=== PATIENT | female | born 1945 | race Caucasian/White ===

== ENCOUNTER 2016-10-13 10:52 | Emergency (ER) | payer MEDICARE ==
[~2016-10-13] VITALS: Ht 170.2 cm; Wt 110.0 kg
[2016-10-13 10:54] VITALS: BP 176/79; PULSE 73; RESP 17; TEMP 98; O2SAT 95
--- NOTE | 2016-10-13 11:02 | PD ---
HPI Chief Complaint: Edema Time Seen by Provider: 11:02 Travel History International Travel<30 days: No Contact w/Intl Traveler<30days: No Traveled to known affect area: No History of Present Illness HPI 71-year-old female with history of hypertension, osteoarthritis presents to the ED for evaluation of 2 week history of swelling, redness, pain of the right leg. Patient states that she has had mild swelling since April when she drove from [place] to [place]. But over the last 3 days this has worsened. She endorses "[id number]" arthritis in the right knee. She denies trauma to the area. She denies previous history of blood clots, is not on blood thinners. She denies chest pain, palpitations, shortness of breath, fever, chills. PFSH Past Medical History ?: Not Social History Tobacco Use: Yes (1ppd) Allergies-Medications (Allergen,Severity, Reaction): Coded Allergies: Demerol (Verified Allergy, Severe, Anaphylaxis, 10/13/16) Talwin (Verified Allergy, Severe, Anaphylaxis, 10/13/16) Reported Meds & Prescriptions Reported Meds & Active Scripts Active Lortab (Hydrocodone-Acetaminophen) 5-325 Mg Tab 1 Tab PO Q6H PRN Reported Lisinopril-Hctz 10-12.5 Mg Tab 1 Tab PO DAILY Methotrexate 2.5 Mg Tab 2.5 Mg PO Q7D Prednisone 5 Mg Tab 5 Mg PO DAILY Metoprolol Tartrate 50 Mg Tab 50 Mg PO DAILY Review of Systems Except as stated in HPI: all other systems reviewed are Neg Physical Exam Narrative GENERAL: Well-nourished, well-developed obese white female in no acute distress. SKIN: Warm and dry. HEAD: Normocephalic. EYES: No scleral icterus. No injection or drainage. NECK: Supple, trachea midline. No JVD or lymphadenopathy. CARDIOVASCULAR: Regular rate and rhythm without murmurs, gallops, or rubs. RESPIRATORY: Breath sounds equal bilaterally. No accessory muscle use. GASTROINTESTINAL: Abdomen soft, non-tender, nondistended. MUSCULOSKELETAL: Right lower extremity erythematous with severe, painful, pitting edema to the mid thigh. Patient is able to flex and extend the knee. Crepitus is appreciated. BACK: Nontender without obvious deformity. No CVA tenderness. Data Data Last Documented VS Vital Signs Date Time Temp Pulse Resp B/P Pulse Ox O2 Delivery O2 Flow Rate FiO2 10/13/16 13:49 87 20 160/74 96 10/13/16 10:54 98.0 Orders Complete Blood Count With Diff (10/13/16 11:07) Comprehensive Metabolic Panel (10/13/16 11:07) Act Partial Throm Time (Ptt) (10/13/16 11:07) Prothrombin Time / Inr (Pt) (10/13/16 11:07) Urinalysis - C+S If Indicated (10/13/16 11:07) Iv Access Insert/Monitor (10/13/16 11:07) Us Leg Venous Doppler (10/13/16 11:07) ^ Jcarlos Bandage (10/13/16 13:23) Labs Laboratory Tests Test 10/13/16 10/13/16 11:35 11:45 White Blood Count 9.0 TH/MM3 Red Blood Count 4.58 MIL/MM3 Hemoglobin 13.9 GM/DL Hematocrit 41.3 % Mean Corpuscular Volume 90.2 FL Mean Corpuscular Hemoglobin 30.4 PG Mean Corpuscular Hemoglobin 33.7 % Concent Red Cell Distribution Width 16.2 % Platelet Count 295 TH/MM3 Mean Platelet Volume 8.4 FL Neutrophils (%) (Auto) 81.7 % Lymphocytes (%) (Auto) 6.7 % Monocytes (%) (Auto) 8.1 % Eosinophils (%) (Auto) 2.9 % Basophils (%) (Auto) 0.6 % Neutrophils # (Auto) 7.3 TH/MM3 Lymphocytes # (Auto) 0.6 TH/MM3 Monocytes # (Auto) 0.7 TH/MM3 Eosinophils # (Auto) 0.3 TH/MM3 Basophils # (Auto) 0.1 TH/MM3 CBC Comment DIFF FINAL Differential Comment Prothrombin Time 10.1 SEC Prothromb Time International 0.9 RATIO Ratio Activated Partial 25.6 SEC Thromboplast Time Sodium Level 140 MEQ/L Potassium Level 4.1 MEQ/L Chloride Level 104 MEQ/L Carbon Dioxide Level 28.2 MEQ/L Anion Gap 8 MEQ/L Blood Urea Nitrogen 28 MG/DL Creatinine 1.32 MG/DL Estimat Glomerular Filtration 40 ML/MIN Rate Random Glucose 95 MG/DL Calcium Level 8.7 MG/DL Total Bilirubin 0.4 MG/DL Aspartate Amino Transf 12 U/L (AST/SGOT) Alanine Aminotransferase 20 U/L (ALT/SGPT) Alkaline Phosphatase 83 U/L Total Protein 7.5 GM/DL Albumin 2.7 GM/DL Urine Color YELLOW Urine Turbidity CLEAR Urine pH 5.5 Urine Specific [place] 1.018 Urine Protein NEG mg/dL Urine Glucose (UA) NEG mg/dL Urine Ketones NEG mg/dL Urine Occult Blood NEG Urine Nitrite NEG Urine Bilirubin NEG Urine Urobilinogen LESS THAN 2.0 MG/DL Urine Leukocyte Esterase NEG Urine RBC 3 /hpf Urine WBC 1 /hpf Urine Squamous Epithelial 3 /hpf Cells Urine Bacteria RARE /hpf Urine Hyaline Casts 1 /lpf Urine Mucus FEW /lpf Microscopic Urinalysis Comment CULT NOT INDICATED MDM Medical Decision Making Medical Screen Exam Complete: Yes Emergency Medical Condition: Yes Differential Diagnosis Chirinos cyst versus osteoarthritis versus DVT versus less likely septic arthritis versus other Narrative Course 71-year-old female with history of hypertension, osteoarthritis presents to the ED for evaluation of 2 week history of swelling, redness, pain of the right leg. Patient states that she has had mild swelling since April when she drove from [place] to [place], worsened over the last day. Denies trauma, history of blood clots, chest pain, palpitations, SOB, fevers, chills. Does not take blood thinners. States right knee is "[id number]." Vitals reviewed. Physical exam reveals a nontoxic appearing obese white female in no acute distress. The right lower extremity is severely edematous to the mid thigh. The entire leg is tender to palpation and mildly erythematous. No palpable popliteal mass. Patient is able to flex and extend the knee, crepitus is appreciated. IV was established. Lab work drawn. Wells score is 4. Ultrasound ordered. No concerning abnormalities of the lab work are noted. Ultrasound negative for DVT. This is edema secondary to OA. I discussed the patient, workup and plan of care with Dr. Carrera. She evaluated the patient and agrees that the patient is safe for discharge and close orthopedic follow-up. Patient was prescribed brief course of narcotic pain medications. The leg was wrapped from the ankle to the mid thigh. Instructed to keep the leg elevated, continue with compression, take pain medications as prescribed, continue home medications as previously prescribed, follow up with Dr. Reynaga. She indicated understanding of the instructions. She is amenable to the plan of care. The patient is stable and discharged home. Diagnosis Primary Impression: Osteoarthritis of right knee Qualified Code: M17.11 - Primary osteoarthritis of right knee Additional Impression: Edema Qualified Code: R60.0 - Localized edema Referrals: Jose Daniel Reynaga MD Patient Instructions: General Instructions, Leg Edema (ED), Osteoarthritis (ED) Additional Instructions: Keep the leg elevated and wrapped to reduce swelling and pain. Take pain medication as prescribed. Follow up with Dr. Reynaga this week as discussed. Return to the ED for any urgent or emergent medical condition. Med/Other Pt SpecificInfo: Prescription(s) given Scripts Hydrocodone-Acetaminophen (Lortab)5-325 Mg Tab1 Tab PO Q6H PRN (PAIN) #15 TAB Ref 0 Prov:Prei Womack MD 10/13/16 Disposition: 01 DISCHARGE HOME Condition: Stable Shelly Arellano Oct 13, 2016 11:02
[2016-10-13 11:53] LABS: AUTOMATED NEUTROPHIL # 7.3 TH/MM3 (1.8-7.7); BASOPHIL # 0.1 TH/MM3 (0-0.2); BASOPHIL % 0.6 % (0.0-2.0); EOSINOPHIL # 0.3 TH/MM3 (0-0.4); EOSINOPHIL % 2.9 % (0.0-4.0); HEMATOCRIT 41.3 % (35.0-46.0); HEMO FLAGS DIFF FINAL; LYMPH % 6.7 % (9.0-44.0); LYMPHOCYTE # 0.6 TH/MM3 (1.0-4.8); MEAN CELL VOLUME 90.2 FL (80.0-100.0); MEAN CORPUSCULAR HEMOGLOBIN 30.4 PG (27.0-34.0); MEAN CORPUSCULAR HGB CONC 33.7 % (32.0-36.0); MONO % 8.1 % (0.0-8.0); NEUT % 81.7 % (16.0-70.0); PLATELET COUNT 295 TH/MM3 (150-450); RED BLOOD COUNT 4.58 MIL/MM3 (4.00-5.30); RED CELL DISTRIBUTION WIDTH 16.2 % (11.6-17.2)
[2016-10-13] MEDS ORDERED: METH2.5T PO (11:58)
[2016-10-13] MEDS ORDERED: PRED5TAB PO (11:58)
[2016-10-13] MEDS ORDERED: METO50TA PO (11:58)
[2016-10-13] MEDS ORDERED: LISI10TA PO (11:58)
[2016-10-13 12:03] LABS: APTT (PATIENT) 25.6 SEC (24.3-30.1); INTERNATIONAL NORMALIZED RATIO 0.9 RATIO; PROTHROMBIN TIME - PATIENT 10.1 SEC (9.8-11.6)
[2016-10-13 12:05] LABS: BACTERIA, URINE RARE /hpf; BLOOD, URINE NEG (NEG); GLUCOSE,URINE NEG (NEG); HYALINE CAST, URINE 1 /lpf (RARE); KETONE, URINE NEG (NEG); MUCUS URINE FEW /lpf (OCC); NITRITE,URINE NEG (NEG); PH, URINE 5.5 (5.0-8.5); SQUAMOUS EPITHELIAL CELL URINE 3 /hpf (0-5); URINE COLOR YELLOW (YELLW/STRAW)
[2016-10-13 12:07] LABS: COMMENT (UR) CULT NOT INDICATED; CULTURE IF INDICATED CULT NOT INDICATED
[2016-10-13 12:13] LABS: ANION GAP 8 MEQ/L (5-15); AST (GOT) 12 U/L (15-37); BICARBONATE 28.2 MEQ/L (21.0-32.0); BLOOD UREA NITROGEN 28 MG/DL (7-18); CHLORIDE 104 MEQ/L (98-107); GLOMERULAR FILTRATION RATE 40 ML/MIN (>89); POTASSIUM 4.1 MEQ/L (3.5-5.1); SODIUM (NA) 140 MEQ/L (136-145)
[2016-10-13 12:16] LABS: ALKALINE PHOSPHATASE 83 U/L (45-117); ALT (GPT) 20 U/L (10-53); TOTAL BILIRUBIN ADULT 0.4 MG/DL (0.2-1.0)
--- NOTE | 2016-10-13 12:42 | RADRPT ---
EXAM DATE/TIME: 10/13/2016 12:13 [facility] COMPARISON: No previous studies available for comparison. INDICATIONS : Right leg swelling. MEDICAL HISTORY : Osteoarthritis. Hypertension. SURGICAL HISTORY : Total knee replacement, left. Right knee arthroscopy. Right hand plate. ENCOUNTER: Initial ACUITY: 4 - 6 days PAIN SCORE: 8/10 LOCATION: Right leg. TECHNIQUE: Venous ultrasound of the leg was performed from the inguinal ligament to the proximal calf. Real-time, color Doppler and spectral tracing, compression and augmentation techniques were us ed. FINDINGS: There is normal compressibility of the deep venous system from the inguinal region to the proximal ca lf. No echogenic clot is seen in the lumen of the common femoral, femoral, popliteal, and posterior tibial veins. There is a normal response of the venous system to proximal and distal augmentation an d respiration. Iliac vein open and patent. CONCLUSION: Negative examination with no evidence of DVT Harry Murphy MD on October 13, 2016 at 12:40 Board Certified Radiologist. This report was verified electronically.
--- NOTE | 2016-10-13 13:18 | PD ---
Data Data Last Documented VS Vital Signs Date Time Temp Pulse Resp B/P Pulse Ox O2 Delivery O2 Flow Rate FiO2 10/13/16 10:54 98.0 73 17 176/79 95 Orders Complete Blood Count With Diff (10/13/16 11:07) Comprehensive Metabolic Panel (10/13/16 11:07) Act Partial Throm Time (Ptt) (10/13/16 11:07) Prothrombin Time / Inr (Pt) (10/13/16 11:07) Urinalysis - C+S If Indicated (10/13/16 11:07) Iv Access Insert/Monitor (10/13/16 11:07) Us Leg Venous Doppler (10/13/16 11:07) Knee, Complete (4vws) (10/13/16 12:58) Labs Laboratory Tests Test 10/13/16 10/13/16 11:35 11:45 White Blood Count 9.0 TH/MM3 Red Blood Count 4.58 MIL/MM3 Hemoglobin 13.9 GM/DL Hematocrit 41.3 % Mean Corpuscular Volume 90.2 FL Mean Corpuscular Hemoglobin 30.4 PG Mean Corpuscular Hemoglobin 33.7 % Concent Red Cell Distribution Width 16.2 % Platelet Count 295 TH/MM3 Mean Platelet Volume 8.4 FL Neutrophils (%) (Auto) 81.7 % Lymphocytes (%) (Auto) 6.7 % Monocytes (%) (Auto) 8.1 % Eosinophils (%) (Auto) 2.9 % Basophils (%) (Auto) 0.6 % Neutrophils # (Auto) 7.3 TH/MM3 Lymphocytes # (Auto) 0.6 TH/MM3 Monocytes # (Auto) 0.7 TH/MM3 Eosinophils # (Auto) 0.3 TH/MM3 Basophils # (Auto) 0.1 TH/MM3 CBC Comment DIFF FINAL Differential Comment Prothrombin Time 10.1 SEC Prothromb Time International 0.9 RATIO Ratio Activated Partial 25.6 SEC Thromboplast Time Sodium Level 140 MEQ/L Potassium Level 4.1 MEQ/L Chloride Level 104 MEQ/L Carbon Dioxide Level 28.2 MEQ/L Anion Gap 8 MEQ/L Blood Urea Nitrogen 28 MG/DL Creatinine 1.32 MG/DL Estimat Glomerular Filtration 40 ML/MIN Rate Random Glucose 95 MG/DL Calcium Level 8.7 MG/DL Total Bilirubin 0.4 MG/DL Aspartate Amino Transf 12 U/L (AST/SGOT) Alanine Aminotransferase 20 U/L (ALT/SGPT) Alkaline Phosphatase 83 U/L Total Protein 7.5 GM/DL Albumin 2.7 GM/DL Urine Color YELLOW Urine Turbidity CLEAR Urine pH 5.5 Urine Specific [place] 1.018 Urine Protein NEG mg/dL Urine Glucose (UA) NEG mg/dL Urine Ketones NEG mg/dL Urine Occult Blood NEG Urine Nitrite NEG Urine Bilirubin NEG Urine Urobilinogen LESS THAN 2.0 MG/DL Urine Leukocyte Esterase NEG Urine RBC 3 /hpf Urine WBC 1 /hpf Urine Squamous Epithelial 3 /hpf Cells Urine Bacteria RARE /hpf Urine Hyaline Casts 1 /lpf Urine Mucus FEW /lpf Microscopic Urinalysis Comment CULT NOT INDICATED MDM Supervised Visit with NANCY: Yes Narrative Course I, Dr. Womack, have reviewed the advance practice practioner's documentation and am in agreement, met with the patient face to face, made the diagnosis, and the medical decision making was done by me. *My assessment and Findings: 71-year-old female with history of chronic osteoarthritis here with complaint of right knee pain for the last 5 months since moving here from [place]. Notes increasing swelling in the right lower extremity. No erythema or open wounds area a wilson and has crepitus in the knee which she states is chronic upon movement. Able to flex to 90 which is baseline for patient and fully extend. No obvious ligamentous laxity though exam is limited. Differential includes DVT, chronic osteoarthritis. No erythema, warmth or significant acute pain to suggest septic arthritis. Laboratory workup and ultrasound were negative for DVT or perdue's cyst and patient will be discharged home. Peri Womack MD Oct 13, 2016 13:18
[2016-10-13] MEDS ORDERED: HYDR-3533 PO (13:22)
[2016-10-13 13:49] VITALS: BP 160/74
== END 2016-10-13 14:09 | disposition home or self-care (01) ==
LOC: NETRI 10:52
DX: M17.11 Unilateral primary osteoarthritis, right knee (principal); R60.0 Localized edema; L53.9 Erythematous condition, unspecified; I10 Essential (primary) hypertension; F17.200 Nicotine dependence, unspecified, uncomplicated
CPT/HCPCS: 80053; 81001; 85025; 85610; 85730; 93971

== ENCOUNTER 2017-11-27 18:31 | Emergency (ER) | payer MEDICARE ==
[~2017-11-27 18:31] MED LIST: HYDR-3533 PO; LISI10TA PO; METH2.5T PO; METO50TA PO; PRED5TAB PO
[2017-11-27 19:18] VITALS: BP 171/87; PULSE 66; RESP 18; TEMP 98.3; O2SAT 94
[2017-11-27] MEDS ORDERED: oxyCODONE/ACETAMINOPHEN 5 MG/325 MG TAB PO ONE (20:15)
--- NOTE | 2017-11-27 20:22 | PD ---
HPI Chief Complaint: Back/ Neck Pain or Injury Time Seen by Provider: 19:33 Travel History International Travel<30 days: No Contact w/Intl Traveler<30days: No Traveled to known affect area: No History of Present Illness HPI 72-year-old female here with low back pain as 4 days. She reports the pain originates in her low back and radiates into bilateral buttocks and thighs. Denies injury or trauma. She has had similar episodes with sciatica in the past but this is much more severe. She denies fever, chills, incontinence, saddle anesthesia, paresthesia or weakness of the extremities. Pain is worse with standing and walking and slightly relieved with rest. Taking OTC Tylenol with minimal relief. PFSH Past Medical History Arthritis: Yes (ra) Hypertension: Yes Past Surgical History Hysterectomy: Yes Social History Alcohol Use: No Tobacco Use: Yes (1ppd) Substance Use: No Allergies-Medications (Allergen,Severity, Reaction): Coded Allergies: meperidine (Unverified Allergy, Severe, Anaphylaxis, 11/27/17) pentazocine (Unverified Allergy, Severe, Anaphylaxis, 11/27/17) Reported Meds & Prescriptions Reported Meds & Active Scripts Active Lortab (Hydrocodone-Acetaminophen) 5-325 Mg Tab 1 Tab PO Q6H PRN Reported Lisinopril-Hctz 10-12.5 Mg Tab 1 Tab PO DAILY Methotrexate 2.5 Mg Tab 2.5 Mg PO Q7D Prednisone 5 Mg Tab 5 Mg PO DAILY Metoprolol Tartrate 50 Mg Tab 50 Mg PO DAILY Review of Systems Except as stated in HPI: all other systems reviewed are Neg General / Constitutional: No: Fever Physical Exam Narrative GENERAL: Alert and well-appearing 72-year-old female sitting on the side of the stretcher. She appears uncomfortable when asked to reposition herself SKIN: Warm and dry. HEAD: Atraumatic. Normocephalic. EYES: No injection or drainage. NECK: Supple CARDIOVASCULAR: Regular rate and rhythm. RESPIRATORY: No accessory muscle use. Clear to auscultation. Breath sounds equal bilaterally. GASTROINTESTINAL: Obese Abdomen, soft, non-tender. MUSCULOSKELETAL: Extremities without clubbing, cyanosis, or edema. No obvious deformities. NEUROLOGICAL: Awake and alert. Motor grossly within normal limits. Normal strength and sensation in her lower extremities. 2+ DP pulses. Patient is able to flex and extend the great toe. Positive straight leg raise bilaterally. BACK: +TTP lumbar spine. No step-off deformity. No CVA tenderness. Data Data Last Documented VS Vital Signs Date Time Temp Pulse Resp B/P (MAP) Pulse Ox O2 Delivery O2 Flow Rate FiO2 11/27/17 19:18 98.3 66 18 171/87 (115) 94 Orders Orders Spine, Lumbar Comp W/Obliq (11/27/17 ) Oxycodone-Acetamin 5-325 Mg (Percocet (11/27/17 20:15) Ketorolac Inj (Toradol Inj) (11/27/17 21:15) MDM Medical Decision Making Medical Screen Exam Complete: Yes Emergency Medical Condition: Yes Differential Diagnosis Sciatica, lumbar fracture, herniated disc, DJD Narrative Course 72-year-old female here with low back pain and lumbar spine tenderness. She has a normal neurologic exam. Patient was given Percocet and observed. X-ray lumbar spine pending End of shift with lumbar spine x-ray pending. Karis WANG will follow xray results and disposition patient. Diagnosis Primary Impression: Sciatica Qualified Codes: M54.31 - Sciatica, right side; M54.32 - Sciatica, left side Zaria Vazquez Nov 27, 2017 20:22
[2017-11-27] MEDS ORDERED: KETOROLAC TROMETHAMINE 60 MG/2 ML (IM) VIAL IM ONE (21:15)
--- NOTE | 2017-11-27 21:48 | RADRPT ---
EXAM DATE/TIME: 11/27/2017 21:14 [facility] COMPARISON: No previous studies available for comparison. INDICATIONS : Lower back pain for 4 days. No injury. MEDICAL HISTORY : Osteoarthritis. Hypertension. SURGICAL HISTORY : Total knee replacement, left. Right knee arthroscopy. Right hand plate. ENCOUNTER: Initial ACUITY: 4 - 6 days PAIN SCORE: 10/10 LOCATION: Lumbar. FINDINGS: There is mild dextroconvex curvature centered around L3. No subluxation demonstrated. Lumbar vertebra l bodies have normal height. There is moderate to severe disc space narrowing with vacuum phenomena and bilateral facet osteoarthr itis at essentially all levels. CONCLUSION: Scoliosis and severe multilevel degenerative changes. No fracture or subluxation demonstrated. Jimmy Bernal MD on November 27, 2017 at 21:45 Board Certified Radiologist. This report was verified electronically.
[2017-11-27] MEDS ORDERED: PERC5TAB12 PO (21:55)
--- NOTE | 2017-11-27 21:55 | PD ---
Physical Exam Date Seen by Provider: Nov 27, 2017 Time Seen by Provider: 21:50 Narrative For full history and physical examination please see previous provider note. I assumed care of this patient changes shift. At that time an x-ray of the lumbar spine was pending. Data Data Last Documented VS Vital Signs Date Time Temp Pulse Resp B/P (MAP) Pulse Ox O2 Delivery O2 Flow Rate FiO2 11/27/17 19:18 98.3 66 18 171/87 (115) 94 Orders Orders Spine, Lumbar Comp W/Obliq (11/27/17 ) Oxycodone-Acetamin 5-325 Mg (Percocet (11/27/17 20:15) Ketorolac Inj (Toradol Inj) (11/27/17 21:15) Ed Discharge Order (11/27/17 21:55) [facility] Medical Record Reviewed: Yes Supervised Visit with NANCY: No Interpretation(s) Vital Signs Date Time Temp Pulse Resp B/P (MAP) Pulse Ox O2 Delivery O2 Flow Rate FiO2 11/27/17 19:18 98.3 66 18 171/87 (115) 94 Differential Diagnosis Muscle strain versus muscle spasm versus sciatica versus degenerative disc disease versus arthritis versus other Narrative Course Patient is a 72-year-old female that presented to emergency evaluation of 4 days of sciatica. There was no preceding injury or trauma. Patient's vital signs are stable. Please see previous provider's report for full history and physical examination. X-ray of the lumbar spine shows scoliosis and degenerative disc disease. There are no acute abnormalities noted. Patient will be discharged home. She is encouraged follow-up with her primary doctor return to emergency department for any new or worsening symptoms. She was encouraged to avoid bed rest, avoid exacerbating activities, apply warm heat to the affected area, continue gentle range of motion exercises. Patient verbalized understanding of instructions. Patient stable for discharge. Diagnosis Primary Impression: Sciatica Qualified Codes: M54.31 - Sciatica, right side; M54.32 - Sciatica, left side Patient Instructions: General Instructions, Sciatica (ED) Departure Forms: Tests/Procedures Additional Instruction: Apply warm heat to affected area, continue gentle range of motion exercises, avoid bed rest, avoid exacerbating activities Follow-up with her primary doctor Return to emergency department for any new or worsening symptoms Med/Other Pt SpecificInfo: Prescription(s) given Scripts Prednisone (Prednisone) 20 Mg Tab 20 MG PO BID for 5 Days, #10 TAB 0 Refills Prov: Karis Christianson 11/27/17 Oxycodone-Acetaminophen (Percocet) 5-325 mg Tab 1 TAB PO Q6H Y for PAIN, #10 TAB 0 Refills Prov: Karis Christianson 11/27/17 Disposition: 01 DISCHARGE HOME Condition: Stable Karis Christianson Nov 27, 2017 21:55
[2017-11-27] MEDS ORDERED: PRED20 PO (21:59)
== END 2017-11-27 22:14 | disposition home or self-care (01) ==
LOC: NEPK 18:31
DX: M54.41 Lumbago with sciatica, right side (principal); M54.42 Lumbago with sciatica, left side; I10 Essential (primary) hypertension; F17.200 Nicotine dependence, unspecified, uncomplicated
CPT/HCPCS: 72110; 96372; 99283; J1885